=== PATIENT | female | born 1945 | race Caucasian/White ===

== ENCOUNTER 2019-10-02 18:47 | Inpatient (IN) ==
[2019-10-03 01:38] LABS: ABG Base Excess 12 mEq/L (-2 to 3); ABG HCO3 42 mEq/L (21-27); ABG Oxygen Saturation 72 % (95-98); ABG PCO2 86 mmHg (35-45); ABG PO2 45 mmHg (85-104); ABG TCO2 45 mEq/L (20-26); Blood Gas Modality BiLevel
[2019-10-03 02:15] LABS: Basophils % 0.2 %; Hemoglobin 11.6 g/dL (11.5-15.4); Immature Granulocytes % 0.9 % (0-4); Lymphocytes # 0.2 K/mcL (0.6-4.6); Lymphocytes % 3.6 %; Mean Corpuscular HGB Conc 31.4 g/dL (31.6-35.5); Mean Corpuscular Hemoglobin 31.6 pg (28.0-33.3); Mean Corpuscular Volume 100.8 fL (83.0-100.0); Mean Platelet Volume 10.2 fL (9.4-12.4); Monocytes # 0.1 K/mcL (0.0-1.3); Monocytes % 1.4 %; Neutrophils # 5.5 K/mcL (1.6-8.9); Platelet Count 157 K/mcL (140-400); Red Blood Count 3.67 M/mcL (3.82-4.97); Red Cell Distribution Width 14.9 % (11.5-14.5); Segmented Neutrophils % 93.9 %; White Blood Count 5.8 K/mcL (4.3-11.1)
[2019-10-03 02:41] LABS: Alanine Aminotransferase 13 Units/L (7-52); Albumin 4.3 g/dL (3.5-5.7); Albumin/Globulin Ratio 1.5 (1.1-2.2); Alkaline Phosphatase 86 Units/L (34-104); Aspartate Amino Transferase 17 Units/L (13-39); BUN/Creatinine Ratio 20 (6-26); Bilirubin,Total 0.6 mg/dL (0.3-1.0); Blood Urea Nitrogen 14 mg/dL (8-23); Calcium 9.7 mg/dL (8.6-10.3); Carbon Dioxide 41 mEq/L (23-29); Chloride 93 mEq/L (98-107); Globulin 2.8 g/dL (2.4-3.5); Glucose 135 mg/dL (70-105); Osmolality,Calculated 295 (280-300); Phosphorous 2.9 mg/dL (2.7-4.5); Potassium 4.6 mEq/L (3.5-5.1); Sodium 141 mEq/L (136-145); Total Protein 7.1 g/dL (6.4-8.9); eGFR For African Americans > 60 (> 60); eGFR For Non-African Americans > 60 (> 60)
[2019-10-03] MEDS ORDERED: HydrOXYzine SYP 10 MG/5 ML UDC PO ONE (03:44)
[2019-10-03] MEDS ORDERED: Albuterol 2.5 MG/3 ML NEBULIZER IH PRN (04:10)
[2019-10-03] MEDS ORDERED: Albuterol 2.5 MG/3 ML NEBULIZER IH SCH (04:15)
[2019-10-03] MEDS: Ipratropium/Albuterol Neb 3 ML IH SCH ×4 (04:27→23:13)
[2019-10-03] MEDS ORDERED: Levalbuterol Neb 1.25 MG/3 ML IH PRN (05:03)
[2019-10-03 05:35] LABS: ABG Base Excess 13 mEq/L (-2 to 3); ABG HCO3 43 mEq/L (21-27); ABG Oxygen Saturation 94 % (95-98); ABG PCO2 87 mmHg (35-45); ABG PO2 81 mmHg (85-104); ABG TCO2 46 mEq/L (20-26)
[2019-10-03] MEDS ORDERED: hydrOXYzine pamoate 25 MG CAPSULE PO ONE (05:49)
[2019-10-03] MEDS ORDERED: Naloxone 0.4 MG/ML INJ IVP PRN (08:13)
[2019-10-03] MEDS ORDERED: *HR* Dextrose 50 % in Water (Syg) 50 ML SYRINGE IVP PRN (08:16)
[2019-10-03] MEDS ORDERED: Dextrose Gel 15 GM/37.5 ML TUBE PO PRN ×2 (08:16)
[2019-10-03] MEDS ORDERED: MethylPREDNISolone 40 MG/ML VIAL IVP SCH (08:16)
[2019-10-03] MEDS ORDERED: D5% in Water 1,000 ML IVC PRN (08:16)
[2019-10-03] MEDS ORDERED: predniSONE 20 MG TABLET PO SCH (09:00)
[2019-10-03] MEDS: Azithromycin 500 MG in 0.9 % Sodium Chloride 250 ML IVPB SCH (09:54)
[2019-10-03] MEDS: Diltiazem CD (24hr) 240 MG CAPSULE PO SCH (09:55)
[2019-10-03] MEDS: Acetaminophen 325 MG TABLET PO PRN (10:00)
[2019-10-03] MEDS ORDERED: Haloperidol Lactate 5 MG/ML VIAL IVP ONE (10:27)
[2019-10-03] MEDS ORDERED: Isovue-370 500 ML BOTTLE IVP ONE (10:58)
[2019-10-03] MEDS: Insulin LISPRO 300 UNITS/3 ML VIAL SQ SCH ×2 (13:11→17:32)
[2019-10-03 14:31] LABS: VBG HCO3 44 mEq/L (21-27); VBG PCO2 89 mmHg (41-51); VBG PO2 66 mmHg (25-50)
[2019-10-03 15:19] LABS: Adenovirus Not Detected (Not Detect); Bordetella Pertussis Not Detected (Not Detect); Chlamydophila pneumoniae Not Detected (Not Detect); Coronavirus 229E Not Detected (Not Detect); Coronavirus HKU1 Not Detected (Not Detect); Coronavirus NL63 Not Detected (Not Detect); Coronavirus OC43 Not Detected (Not Detect); Human Metapneumovirus Not Detected (Not Detect); Human Rhinovirus/Enterovirus Not Detected (Not Detect); Influenza A Subtype 2009 H1 Not Detected (Not Detect); Influenza A Untypeable Not Detected (Not Detect); Influenza B Not Detected (Not Detect); Mycoplasma pneumoniae Not Detected (Not Detect); Parainfluenza Virus 1 Not Detected (Not Detect); Parainfluenza Virus 2 Not Detected (Not Detect); Parainfluenza Virus 3 Not Detected (Not Detect); Parainfluenza Virus 4 Not Detected (Not Detect); Respiratory Syncytial Virus DETECTED (Not Detect)
[2019-10-03] MEDS: *HR* Heparin 5,000 UNIT/ML VIAL SQ SCH ×2 (15:25→20:55)
[2019-10-03] MEDS ORDERED: Furosemide 20 MG/2 ML VIAL IVP ONE (17:19)
[2019-10-03] MEDS: MethylPREDNISolone 40 MG/ML VIAL IVP SCH (17:32)
[2019-10-03 17:37] LABS: Bilirubin,Urine Negative (Negative); Blood,Urine Negative (Negative); Clarity,Urine Clear (Clear); Color,Urine Yellow (Yellow); Glucose,Urine (UA) Normal (Normal); Ketones,Urine Trace mg/dL (Negative); Leukocyte Esterase,Urine Negative (Negative); Nitrite,Urine Negative (Negative); Protein,Urine Negative (Neg-Trace); Specific Gravity,Urine 1.023 (1.010-1.025); Urobilinogen,Urine Normal (Normal)
[2019-10-03] MEDS ORDERED: Dexmedetomidine HCl 400 MCG/100 ML MLS IVC ONE (21:50)
[2019-10-03] MEDS: Dexmedetomidine HCl 400 MCG/100 ML MLS IVC SCH (21:55)
[2019-10-04] MEDS: Insulin LISPRO 300 UNITS/3 ML VIAL SQ SCH ×4 (00:07→18:46)
[2019-10-04] MEDS: MethylPREDNISolone 40 MG/ML VIAL IVP SCH ×4 (00:11→23:53)
[2019-10-04 05:09] LABS: ABG Base Excess 17 mEq/L (-2 to 3); ABG HCO3 45 mEq/L (21-27); ABG Oxygen Saturation 91 % (95-98); ABG PCO2 77 mmHg (35-45); ABG PH 7.38 pH Units (7.32-7.45); ABG PO2 66 mmHg (85-104); ABG TCO2 48 mEq/L (20-26); Blood Gas Modality AVAPS; Blood Gas VT 460 cc
[2019-10-04] MEDS: Ipratropium/Albuterol Neb 3 ML IH SCH (05:13)
[2019-10-04 05:20] LABS: Basophils % 0.1 %; Hematocrit 35.1 % (35.3-44.9); Hemoglobin 11.4 g/dL (11.5-15.4); Immature Granulocytes % 0.5 % (0-4); Lymphocytes # 0.4 K/mcL (0.6-4.6); Lymphocytes % 4.7 %; Mean Corpuscular HGB Conc 32.5 g/dL (31.6-35.5); Mean Corpuscular Hemoglobin 31.7 pg (28.0-33.3); Mean Corpuscular Volume 97.5 fL (83.0-100.0); Mean Platelet Volume 10.2 fL (9.4-12.4); Monocytes # 0.3 K/mcL (0.0-1.3); Monocytes % 3.1 %; Neutrophils # 7.9 K/mcL (1.6-8.9); Platelet Count 195 K/mcL (140-400); Red Cell Distribution Width 14.3 % (11.5-14.5); Segmented Neutrophils % 91.6 %; White Blood Count 8.7 K/mcL (4.3-11.1)
[2019-10-04 05:22] LABS: Prothrombin Time 10.8 Seconds (9.4-12.1)
[2019-10-04 05:25] LABS: Activated Partial Thrombo Time 30.6 Seconds (26.0-36.0)
[2019-10-04 05:36] LABS: BUN/Creatinine Ratio 49 (6-26); Blood Urea Nitrogen 39 mg/dL (8-23); Calcium 9.3 mg/dL (8.6-10.3); Carbon Dioxide 39 mEq/L (23-29); Chloride 94 mEq/L (98-107); Glucose 128 mg/dL (70-105); Magnesium 2.2 mg/dL (1.6-2.6); Osmolality,Calculated 301 (280-300); Phosphorous 3.7 mg/dL (2.7-4.5); Potassium 4.8 mEq/L (3.5-5.1); Sodium 140 mEq/L (136-145); eGFR For African Americans > 60 (> 60); eGFR For Non-African Americans > 60 (> 60)
[2019-10-04] MEDS: *HR* Heparin 5,000 UNIT/ML VIAL SQ SCH ×3 (05:48→22:07)
[2019-10-04] MEDS: Azithromycin 500 MG in 0.9 % Sodium Chloride 250 ML IVPB SCH (07:49)
[2019-10-04] MEDS ORDERED: Furosemide 20 MG/2 ML VIAL IVP ONE (08:02)
[2019-10-04] MEDS ORDERED: *HR* LORazepam 2 MG/ML VIAL IVP ONE (08:49)
[2019-10-04] MEDS ORDERED: *HR* Heparin 5,000 UNIT/ML VIAL IVP PRN ×2 (09:09)
[2019-10-04] MEDS ORDERED: Heparin 25,000 UNIT/250 ML D5W 25,000 UNIT/250 ML IV.SOLN IVC SCH (09:15)
[2019-10-04] MEDS: Diltiazem CD (24hr) 240 MG CAPSULE PO SCH (11:04)
[2019-10-04] MEDS ORDERED: *HR* FentaNYL (PF) 100 MCG/2 ML VIAL IVP ONE (15:09)
[2019-10-04] MEDS ORDERED: Ondansetron 4 MG/2 ML VIAL IVP ONE (15:09)
[2019-10-05] MEDS: Insulin LISPRO 300 UNITS/3 ML VIAL SQ SCH ×4 (00:11→17:32)
[2019-10-05] MEDS: Dexmedetomidine HCl 400 MCG/100 ML MLS IVC SCH ×2 (00:23→23:54)
[2019-10-05] MEDS: *HR* Heparin 5,000 UNIT/ML VIAL SQ SCH ×3 (05:56→21:33)
[2019-10-05] MEDS: predniSONE 20 MG TABLET PO SCH (08:20)
[2019-10-05] MEDS: Azithromycin 500 MG in 0.9 % Sodium Chloride 250 ML IVPB SCH (08:20)
[2019-10-05] MEDS: MethylPREDNISolone 40 MG/ML VIAL IVP ONE ×2 (08:21→08:37)
[2019-10-05] MEDS: Diltiazem CD (24hr) 240 MG CAPSULE PO SCH (08:21)
[2019-10-05 09:48] LABS: Basophils % 0.1 %; Hematocrit 38.5 % (35.3-44.9); Hemoglobin 12.3 g/dL (11.5-15.4); Immature Granulocytes % 0.7 % (0-4); Lymphocytes # 0.6 K/mcL (0.6-4.6); Lymphocytes % 4.4 %; Mean Corpuscular HGB Conc 31.9 g/dL (31.6-35.5); Mean Corpuscular Hemoglobin 31.7 pg (28.0-33.3); Mean Corpuscular Volume 99.2 fL (83.0-100.0); Mean Platelet Volume 10.2 fL (9.4-12.4); Monocytes # 0.7 K/mcL (0.0-1.3); Neutrophils # 12.1 K/mcL (1.6-8.9); Platelet Count 201 K/mcL (140-400); Red Blood Count 3.88 M/mcL (3.82-4.97); Red Cell Distribution Width 14.3 % (11.5-14.5); Segmented Neutrophils % 89.8 %; White Blood Count 13.5 K/mcL (4.3-11.1)
[2019-10-05 09:58] LABS: BUN/Creatinine Ratio 63 (6-26); Blood Urea Nitrogen 43 mg/dL (8-23); Calcium 8.9 mg/dL (8.6-10.3); Carbon Dioxide 40 mEq/L (23-29); Chloride 93 mEq/L (98-107); Glucose 140 mg/dL (70-105); Osmolality,Calculated 305 (280-300); Potassium 4.6 mEq/L (3.5-5.1); Sodium 141 mEq/L (136-145); eGFR For African Americans > 60 (> 60); eGFR For Non-African Americans > 60 (> 60)
[2019-10-05] MEDS: Ipratropium/Albuterol Neb 3 ML IH SCH ×2 (15:29→19:54)
[2019-10-05] MEDS: Budesonide Neb 0.5 MG/2 ML IH SCH (22:08)
[2019-10-06] MEDS: Ipratropium/Albuterol Neb 3 ML IH SCH ×6 (00:17→20:12)
[2019-10-06] MEDS: Insulin LISPRO 300 UNITS/3 ML VIAL SQ SCH ×5 (03:43→23:42)
[2019-10-06] MEDS: *HR* Heparin 5,000 UNIT/ML VIAL SQ SCH ×3 (05:38→20:52)
[2019-10-06] MEDS: Acetaminophen 325 MG TABLET PO PRN (06:33)
[2019-10-06] MEDS: Budesonide Neb 0.5 MG/2 ML IH SCH ×3 (07:30→20:12)
[2019-10-06] MEDS: Azithromycin 500 MG in 0.9 % Sodium Chloride 250 ML IVPB SCH (08:16)
[2019-10-06] MEDS: predniSONE 20 MG TABLET PO SCH (08:17)
[2019-10-06] MEDS: Diltiazem CD (24hr) 240 MG CAPSULE PO SCH (08:18)
[2019-10-06] MEDS ORDERED: *HR* LORazepam 0.5 MG TABLET PO PRN (08:39)
[2019-10-06] MEDS ORDERED: Acetaminophen 325 MG TABLET PO PRN (08:55)
[2019-10-06] MEDS ORDERED: Naloxone 0.4 MG/ML INJ IVP PRN (08:55)
[2019-10-06] MEDS ORDERED: D5% in Water 1,000 ML IVC PRN (08:55)
[2019-10-06] MEDS ORDERED: *HR* Dextrose 50 % in Water (Syg) 50 ML SYRINGE IVP PRN (08:55)
[2019-10-06] MEDS ORDERED: Dextrose Gel 15 GM/37.5 ML TUBE PO PRN ×2 (08:55)
[2019-10-06 10:38] LABS: Basophils % 0.1 %; Hematocrit 38.2 % (35.3-44.9); Hemoglobin 12.6 g/dL (11.5-15.4); Immature Granulocytes % 0.8 % (0-4); Lymphocytes # 0.6 K/mcL (0.6-4.6); Lymphocytes % 3.9 %; Mean Corpuscular Hemoglobin 32.1 pg (28.0-33.3); Mean Corpuscular Volume 97.2 fL (83.0-100.0); Monocytes # 1.8 K/mcL (0.0-1.3); Monocytes % 11.1 %; Neutrophils # 13.3 K/mcL (1.6-8.9); Platelet Count 233 K/mcL (140-400); Red Blood Count 3.93 M/mcL (3.82-4.97); Red Cell Distribution Width 14.4 % (11.5-14.5); Segmented Neutrophils % 84.1 %; White Blood Count 15.9 K/mcL (4.3-11.1)
[2019-10-06 11:04] LABS: BUN/Creatinine Ratio 58 (6-26); Blood Urea Nitrogen 39 mg/dL (8-23); Calcium 8.7 mg/dL (8.6-10.3); Carbon Dioxide 41 mEq/L (23-29); Chloride 95 mEq/L (98-107); Glucose 165 mg/dL (70-105); Osmolality,Calculated 303 (280-300); Potassium 3.8 mEq/L (3.5-5.1); Sodium 140 mEq/L (136-145); eGFR For African Americans > 60 (> 60); eGFR For Non-African Americans > 60 (> 60)
[2019-10-06] MEDS ORDERED: Dexmedetomidine HCl 400 MCG/100 ML MLS IVC ONE (12:03)
[2019-10-06] MEDS ORDERED: Dexmedetomidine HCl 400 MCG/100 ML MLS IVC SCH (12:15)
[2019-10-06] MEDS: *HR* LORazepam 0.5 MG TABLET PO PRN (20:51)
[2019-10-07] MEDS: Ipratropium/Albuterol Neb 3 ML IH SCH ×6 (00:04→20:09)
[2019-10-07] MEDS: Insulin LISPRO 300 UNITS/3 ML VIAL SQ SCH ×4 (06:38→22:49)
[2019-10-07] MEDS: *HR* Heparin 5,000 UNIT/ML VIAL SQ SCH ×3 (06:51→20:15)
[2019-10-07] MEDS: Budesonide Neb 0.5 MG/2 ML IH SCH ×2 (07:19→20:09)
[2019-10-07] MEDS: Diltiazem CD (24hr) 240 MG CAPSULE PO SCH (08:27)
[2019-10-07] MEDS: predniSONE 20 MG TABLET PO SCH (08:28)
[2019-10-07] MEDS: Azithromycin 500 MG in 0.9 % Sodium Chloride 250 ML IVPB SCH (08:29)
[2019-10-07] MEDS: *HR* LORazepam 0.5 MG TABLET PO PRN (08:51)
[2019-10-07 17:48] LABS: Estimated Average Glucose 94 mg/dl
[2019-10-08] MEDS: Ipratropium/Albuterol Neb 3 ML IH SCH ×6 (00:05→20:07)
[2019-10-08 04:58] LABS: Basophils % 0.3 %; Hematocrit 32.4 % (35.3-44.9); Immature Granulocytes % 1.7 % (0-4); Lymphocytes # 0.9 K/mcL (0.6-4.6); Mean Corpuscular HGB Conc 32.4 g/dL (31.6-35.5); Mean Corpuscular Volume 95.6 fL (83.0-100.0); Mean Platelet Volume 10.2 fL (9.4-12.4); Monocytes # 0.8 K/mcL (0.0-1.3); Monocytes % 10.4 %; Neutrophils # 5.4 K/mcL (1.6-8.9); Platelet Count 201 K/mcL (140-400); Red Blood Count 3.39 M/mcL (3.82-4.97); Red Cell Distribution Width 14.1 % (11.5-14.5); Segmented Neutrophils % 75.6 %; White Blood Count 7.2 K/mcL (4.3-11.1)
[2019-10-08 04:59] LABS: Hemoglobin 10.5 g/dL (11.5-15.4)
[2019-10-08 05:14] LABS: BUN/Creatinine Ratio 40 (6-26); Blood Urea Nitrogen 20 mg/dL (8-23); Calcium 8.6 mg/dL (8.6-10.3); Carbon Dioxide 40 mEq/L (23-29); Chloride 95 mEq/L (98-107); Glucose 95 mg/dL (70-105); Magnesium 2.1 mg/dL (1.6-2.6); Osmolality,Calculated 300 (280-300); Phosphorous 1.9 mg/dL (2.7-4.5); Potassium 3.9 mEq/L (3.5-5.1); Sodium 144 mEq/L (136-145); eGFR For African Americans > 60 (> 60); eGFR For Non-African Americans > 60 (> 60)
[2019-10-08] MEDS: *HR* Heparin 5,000 UNIT/ML VIAL SQ SCH ×3 (06:01→20:49)
[2019-10-08] MEDS: Budesonide Neb 0.5 MG/2 ML IH SCH ×2 (07:28→20:07)
[2019-10-08] MEDS: Insulin LISPRO 300 UNITS/3 ML VIAL SQ SCH ×4 (07:28→21:02)
[2019-10-08] MEDS: Diltiazem CD (24hr) 240 MG CAPSULE PO SCH (07:34)
[2019-10-08] MEDS: predniSONE 20 MG TABLET PO SCH (07:35)
[2019-10-08] MEDS: Azithromycin 500 MG in 0.9 % Sodium Chloride 250 ML IVPB SCH (07:35)
[2019-10-09] MEDS: Ipratropium/Albuterol Neb 3 ML IH SCH ×6 (00:45→20:02)
[2019-10-09] MEDS: *HR* Heparin 5,000 UNIT/ML VIAL SQ SCH ×3 (05:02→20:41)
[2019-10-09] MEDS: Budesonide Neb 0.5 MG/2 ML IH SCH ×2 (07:41→20:02)
[2019-10-09] MEDS: Insulin LISPRO 300 UNITS/3 ML VIAL SQ SCH ×3 (09:00→16:33)
[2019-10-09] MEDS: Azithromycin 500 MG in 0.9 % Sodium Chloride 250 ML IVPB SCH (09:09)
[2019-10-09] MEDS: Diltiazem CD (24hr) 240 MG CAPSULE PO SCH (09:09)
[2019-10-09] MEDS: predniSONE 20 MG TABLET PO SCH (09:09)
[2019-10-09] MEDS: *HR* LORazepam 0.5 MG TABLET PO PRN (10:44)
[2019-10-09] MEDS ORDERED: Ipratropium/Albuterol Neb 3 ML IH ONE (13:32)
[2019-10-09] MEDS ORDERED: Ipratropium/Albuterol Neb 3 ML ONE (13:37)
[2019-10-10] MEDS: Ipratropium/Albuterol Neb 3 ML IH SCH ×6 (00:09→20:37)
[2019-10-10] MEDS: Insulin LISPRO 300 UNITS/3 ML VIAL SQ SCH ×5 (01:12→22:23)
[2019-10-10 05:40] LABS: Hematocrit 33.4 % (35.3-44.9); Hemoglobin 10.8 g/dL (11.5-15.4); Mean Corpuscular HGB Conc 32.3 g/dL (31.6-35.5); Mean Corpuscular Hemoglobin 31.5 pg (28.0-33.3); Mean Corpuscular Volume 97.4 fL (83.0-100.0); Platelet Count 268 K/mcL (140-400); Red Blood Count 3.43 M/mcL (3.82-4.97); White Blood Count 7.8 K/mcL (4.3-11.1)
[2019-10-10 06:00] LABS: BUN/Creatinine Ratio 23 (6-26); Blood Urea Nitrogen 14 mg/dL (8-23); Calcium 9.1 mg/dL (8.6-10.3); Carbon Dioxide 44 mEq/L (23-29); Chloride 92 mEq/L (98-107); Glucose 76 mg/dL (70-105); Osmolality,Calculated 297 (280-300); Phosphorous 2.2 mg/dL (2.7-4.5); Sodium 144 mEq/L (136-145); eGFR For African Americans > 60 (> 60); eGFR For Non-African Americans > 60 (> 60)
[2019-10-10] MEDS: *HR* Heparin 5,000 UNIT/ML VIAL SQ SCH ×3 (06:29→20:19)
[2019-10-10] MEDS: Budesonide Neb 0.5 MG/2 ML IH SCH ×2 (08:08→20:37)
[2019-10-10] MEDS: Diltiazem CD (24hr) 240 MG CAPSULE PO SCH (08:56)
[2019-10-10] MEDS: predniSONE 20 MG TABLET PO SCH (08:56)
[2019-10-10] MEDS ORDERED: *HR* Metoprolol 5 MG/5 ML VIAL IVP PRN (18:26)
[2019-10-11] MEDS: Ipratropium/Albuterol Neb 3 ML IH SCH ×5 (00:33→15:57)
[2019-10-11] MEDS: *HR* Heparin 5,000 UNIT/ML VIAL SQ SCH (05:20)
[2019-10-11 05:41] LABS: Hematocrit 33.8 % (35.3-44.9); Hemoglobin 10.9 g/dL (11.5-15.4); Mean Corpuscular HGB Conc 32.2 g/dL (31.6-35.5); Mean Corpuscular Hemoglobin 31.5 pg (28.0-33.3); Mean Corpuscular Volume 97.7 fL (83.0-100.0); Mean Platelet Volume 9.4 fL (9.4-12.4); Platelet Count 257 K/mcL (140-400); Red Blood Count 3.46 M/mcL (3.82-4.97); White Blood Count 8.5 K/mcL (4.3-11.1)
[2019-10-11 06:10] LABS: BUN/Creatinine Ratio 19 (6-26); Blood Urea Nitrogen 11 mg/dL (8-23); Calcium 9.1 mg/dL (8.6-10.3); Carbon Dioxide > 45 mEq/L (23-29); Chloride 92 mEq/L (98-107); Glucose 86 mg/dL (70-105); Osmolality,Calculated 297 (280-300); Potassium 3.6 mEq/L (3.5-5.1); Sodium 144 mEq/L (136-145); eGFR For African Americans > 60 (> 60); eGFR For Non-African Americans > 60 (> 60)
[2019-10-11] MEDS: Budesonide Neb 0.5 MG/2 ML IH SCH (08:30)
[2019-10-11] MEDS: Insulin LISPRO 300 UNITS/3 ML VIAL SQ SCH ×2 (08:42→13:38)
[2019-10-11] MEDS: predniSONE 20 MG TABLET PO SCH (08:42)
[2019-10-11] MEDS ORDERED: Diltiazem CD (24hr) 180 MG CAPSULE PO SCH (09:00)
[2019-10-11 11:10] VITALS: BP 124/73
== END 2019-10-11 16:45 | disposition other institution (70) | DRG 190 ==
LOC: 2NENU 22:38 → SUATTDRO 22:38 → ICNU 10-03 16:07 → 2NNU 10-06 19:22 → 3ANU 10-09 02:41
PROVIDERS: ADMIT Internal Medicine; ATTEND Internal Medicine